=== PATIENT | female | born 1985 | race Caucasian/White ===

== ENCOUNTER 2017-04-28 05:40 | Day surgery (SDC) | payer BC, OTHER ==
[~2017-04-28] VITALS: Ht 177.8 cm; Wt 113.4 kg
[~2017-04-28 05:40] MED LIST: ACULAR1 DROP OS; IBUPROFEN600 MG PO; MACROBID 100 M100 MG PO; MELATONIN1 M1 SL; MELOXICAM15 MG PO; NORCO 5-325 TA1 EACH PO; POLYTRIM EYE DR10 ML OS; PRENATAL CAPLE1 EACH PO; TYLENOL EXTRA500 MG PO; ZOFRAN8 MG PO
--- NOTE | 2017-04-28 08:26 | NUR ---
04/28/17 0826 Brielle Sanchez 0820 PATIENT ARRIVES TO PACU UNRESPONSIVE TO PAIN OR VERBAL STIMULI. ORAL AIRWAY IN PLACE. RESP EVEN AND UNLABORED, MASK AT 10 LITERS, DECREASED TO 6 LITERS, SATS 100%.
--- NOTE | 2017-04-28 09:38 | NUR ---
LE 0900: PT RETURNED FROM PACU, PT AWAKE ASKING TO USE THE RESTROOM. VITALS STABLE, DENIES PAIN AND NAUSEA. AMBULATES TO BATHROOM TO VOID, STEADY ON FEET. DENIES DIZZINESS. PT ASKING TO GO HOME. DISCUSSED WITH ROLLWAY MAN, PT OKAY TO GO HOME IF STABLE. PT UP IN ROOM, ADVISED OKAY TO GO HOME.
--- NOTE | 2017-04-28 09:41 | NUR ---
LE 0915: IN TO CHECK ON PT, PT DRESSED WITH NO ASSISTANCE. PT STANDING TALKING ON PHONE. PT STATES SHE HAS CALLED SO TO COME PICK HER UP. DENIES PAIN AND NAUSEA. IV DC'D. DISCHARGE INSTRUCTIONS GIVEN. WILL WAIT FOR SO TO ARRIVE FOR DC.
--- NOTE | 2017-04-30 08:11 | OR ---
[facility] [address] [place], [place] [address] Signed DATE OF OPERATION: 04/28/2017 SURGEON: Aviav Carrera MD PREOPERATIVE DIAGNOSES: 1. Left mid forearm subcutaneous mass x1. 2. Right mid forearm subcutaneous mass x1. POSTOPERATIVE DIAGNOSES: 1. Left mid forearm subcutaneous mass x1. 2. Right mid forearm subcutaneous mass x1. PROCEDURE: Excision left subcutaneous forearm masses x2. ESTIMATED BLOOD LOSS: None. INDICATIONS AND DESCRIPTION OF PROCEDURE: Henry is a 32-year-old female who has a subcutaneous mass on each forearm. They are in the mid forearm. They are small about 1 cm. They feel a little bit deep. They are indurated and firm. She said it is terribly painful when she is trying to tight. It has been bothering her at work and interfering with her day. She has had her dad and grandfather had similar lesions. Both her dad and grandfather had to have them removed. Her primary care provider had asked her to see me to have them excised. In the office, we talked about trying to do it under local anesthetic and eventually decide it maybe for these because they were so deep, we would do them in the operating room under anesthesia with local anesthetic. In our preop area, I met with Henry and her . She was able to find each subcutaneous mass. There was supposed to be a 2nd one on the right forearm, but she is not able to find that out today. We are pretty certain where it is, but we decided we would leave that alone for now. We marked the 2 subcutaneous masses appropriately. After this, Henry was taken in the operating room and placed in the supine position under general endotracheal tube anesthesia. She was given preoperative antibiotics along with subcutaneous heparin. SCDs were utilized. Her arms were then prepped and draped in the usual sterile fashion. I made a radial incision over each area and then dissected down through the tissue. She had 2 hard lipomatous appearing lesions. Each one was about 1 cm. They seemed to be a little more firm than usual. We searched around the area and no other tissue noted. After this, local anesthetic was injected into both areas. The dermis was reapproximated with interrupted 3-0 subcuticular suture and then the skin edges were reapproximated with a running 6-0 Electronically Signed By: AVIVA CARRERA MD 04/30/17 0811 PATIENT NAME: HENRY PERALES OPERATIVE REPORT DATE OF : 89 PHYSICIAN: AVIVA CARRERA MD REPORT #: [id number] REPORT IS CONFIDENTIAL AND NOT TO BE RELEASED WITHOUT AUTHORIZATION [address] [address] Signed fast absorbing plain gut suture. Dry gauze and tape were then applied. Henry was then taken into the recovery room in stable condition. MD SE Plasencia/RENÉ /[id number] cc: MD Mayito Plasencia MD Electronically Signed By: AVIVA CARRERA MD 04/30/17 0811 PATIENT NAME: HENRY PERALES OPERATIVE REPORT DATE OF : 89 PHYSICIAN: AVIVA CARRERA MD REPORT #: [id number] REPORT IS CONFIDENTIAL AND NOT TO BE RELEASED WITHOUT AUTHORIZATION
== END 2017-04-28 09:30 | disposition home or self-care (01) ==
LOC: DS 05:40
PROVIDERS: Colon & Rectal Surgery
PROC: 0JBG0ZZ Excision of Right Lower Arm Subcutaneous Tissue and Fascia, Open Approach (ICD-10-PCS; 2017-04-28)
PROC: 0JBH0ZZ Excision of Left Lower Arm Subcutaneous Tissue and Fascia, Open Approach (ICD-10-PCS; principal; 2017-04-28 06:45)
DX: D17.22 Benign lipomatous neoplasm of skin and subcutaneous tissue of left arm (principal); D17.21 Benign lipomatous neoplasm of skin and subcutaneous tissue of right arm; Z90.89 Acquired absence of other organs; Z90.49 Acquired absence of other specified parts of digestive tract; Z87.891 Personal history of nicotine dependence; Z88.2 Allergy status to sulfonamides
CPT/HCPCS: 00400; J0330; J0690; J1100; J1644; J1885; J2250; J2405; J2704; J2765; J3010; J7120

== ENCOUNTER 2019-11-10 12:02 | Emergency (ER) | payer BC ==
[~2019-11-10] VITALS: Ht 177.8 cm; Wt 122.5 kg
[2019-11-10] MEDS ORDERED: PRENATAL FORMU1 EAC3 PO (12:15)
== END 2019-11-10 13:38 | disposition home or self-care (01) ==
LOC: ED 12:02
DX: O22.23 Superficial thrombophlebitis in pregnancy, third trimester (principal); I80.01 Phlebitis and thrombophlebitis of superficial vessels of right lower extremity; O99.333 Smoking (tobacco) complicating pregnancy, third trimester; F17.200 Nicotine dependence, unspecified, uncomplicated; Z3A.33 33 weeks gestation of pregnancy; Z88.2 Allergy status to sulfonamides
CPT/HCPCS: 93971; 99283-25

== ENCOUNTER 2019-12-22 16:19 | Inpatient (IN) | payer BC ==
[~2019-12-22] VITALS: Ht 177.8 cm; Wt 123.8 kg
[~2019-12-22 16:19] MED LIST changes: +PRENATAL FORMU1 EAC3 PO
--- NOTE | 2019-12-23 08:18 | PR ---
[facility] [address] [facility] [place] [address] Signed Progress Notes IP Datetime Report Generated by CPN: 12/23/2019 08:17 PROGRESS NOTES: [id number] Impression: Normal Progression of Labor Procedures: Artificial ROM Plan: Continue Present Management VITAL SIGNS: [id number] Vital Signs: Reviewed; Within Normal Limits EXAM: [id number] Dilatation: 3.0 Effacement: 80 Station: -3 Contractions: every 2-3 minutes MEMBRANES: [id number] Membranes Status: Ruptured Comments: Doing well. FETUS A: [id number] FHR Baseline: 130 Variability: Moderate 6-25bpm Accelerations: 15X15 Decelerations: Variable Presentation: Vertex FETUS B: [id number] Signing Physician: Britany Whitt MD Copies: ~ *Electronically Signed* 12/23/19 08 BRITANY WHITT MD PATIENT NAME: HENRY DANIELSON PROGRESS NOTE DATE OF : 89 PHYSICIAN: BRITANY WHITT MD RPT #: [id number] REPORT IS CONFIDENTIAL AND NOT TO BE RELEASED WITHOUT AUTHORIZATION
--- NOTE | 2019-12-24 12:21 | PR ---
[facility] [address] [place] [place] [address] Signed PP Progress Notes Datetime Report Generated by CPN: 12/24/2019 12:21 SUBJECTIVE: [id number] Pain: Within Normal Limits Nausea/Vomiting: Denies Vital Signs: [id number] Vital Signs: Reviewed; Within Normal Limits Notable Details: PP Hgb/Hct = 11.4/34.4 EXAM: Ongoing Abdomen/Uterus: Normal Lochia: Normal Extremities: Normal IMPRESSION/PLAN/PROCEDURES: [id number] Impression: Normal Progression Plan: Discharge Procedures: None Progress Notes: Doing well, without complaint, ready to go home, but GBS+ Signing Physician: Britany Whitt MD Copies: ~ *Electronically Signed* 12/24/19 1221 BRITANY WHITT MD PATIENT NAME: HENRY DANIELSON PROGRESS NOTE DATE OF : 89 PHYSICIAN: BRITANY WHITT MD RPT #: [id number] REPORT IS CONFIDENTIAL AND NOT TO BE RELEASED WITHOUT AUTHORIZATION
== END 2019-12-24 14:50 | disposition home or self-care (01) | DRG 806 ==
LOC: FBC 12-23 00:12
PROVIDERS: ADMIT General Practice; ATTEND General Practice
PROC: 10E0XZZ Delivery of Products of Conception, External Approach (ICD-10-PCS; principal; 2019-12-23)
PROC: 0UQMXZZ Repair Vulva, External Approach (ICD-10-PCS; 2019-12-23)
PROC: 10907ZC Drainage of Amniotic Fluid, Therapeutic from Products of Conception, Via Natural or Artificial Opening (ICD-10-PCS; 2019-12-23)
PROC: 3E0P7VZ Introduction of Hormone into Female Reproductive, Via Natural or Artificial Opening (ICD-10-PCS; 2019-12-23)
PROC: 00HU33Z Insertion of Infusion Device into Spinal Canal, Percutaneous Approach (ICD-10-PCS; 2019-12-23)
PROC: 3E0R3BZ Introduction of Anesthetic Agent into Spinal Canal, Percutaneous Approach (ICD-10-PCS; 2019-12-23)
DX: O62.3 Precipitate labor (principal); O87.0 Superficial thrombophlebitis in the puerperium; Z37.0 Single live birth; Z3A.39 39 weeks gestation of pregnancy; O76 Abnormality in fetal heart rate and rhythm complicating labor and delivery; O99.824 Streptococcus B carrier state complicating childbirth; O99.334 Smoking (tobacco) complicating childbirth; F17.210 Nicotine dependence, cigarettes, uncomplicated; O71.82 Other specified trauma to perineum and vulva; O99.892 Other specified diseases and conditions complicating childbirth; R12 Heartburn; Z88.2 Allergy status to sulfonamides
CPT/HCPCS: 01960; 36415; 85027; A9270; J2540; J2590; J2795; J3010; J7121

== ENCOUNTER 2021-07-16 08:57 | Day surgery (SDC) | payer BC ==
[~2021-07-16 08:57] MED LIST changes: +CLONAZEPAM0.5 MG PO; +DICYCLOMINE HCL10 MG PO
--- NOTE | 2021-07-16 11:16 | NUR ---
07/16/21 Bernabe5 Krystin Flores 1112- PT ARRIVES TO PACU ALERT AND ORIENTED. PT REPORTS NO PAIN OR NAUSEA. RESP EVEN AND UNLABORED. OXYGEN SAT HIGH 90'S TO 100% ON 3L VIA NC. 1114- OXYGEN TITRATED OFF.
--- NOTE | 2021-07-19 16:28 | PATH ---
[facility] [address] [place], [place] [address] Signed SPECIMEN(S): A TERMINAL ILUEM BIOPSY SPECIMEN(S): B CECAL BIOPSY SPECIMEN(S): C RECTAL BIOPSY SPECIMEN SOURCE: A. TERMINAL ILUEM BIOPSY B. CECAL BIOPSY C. RECTAL BIOPSY CLINICAL HISTORY: Chronic diarrhea. FINAL PATHOLOGIC DIAGNOSIS: A. Terminal ileum, biopsy: - Ileal mucosa with no histopathologic abnormality. - Negative for active inflammation or granulomas. - Negative for dysplasia or malignancy. B. Colon, cecum, biopsy: - Colonic mucosa with no histopathologic abnormality. - Negative for active, chronic, or microscopic colitis. - Negative or dysplasia or malignancy. C. Rectum, biopsy: - Colorectal mucosa with no histopathologic abnormality. - Negative for active or chronic proctitis. - Negative for dysplasia or malignancy. NAL:smh:C2NR MICROSCOPIC EXAMINATION: Histologic sections of all submitted blocks are examined by light microscopy. These findings, together with the gross examination, support the pathologic diagnosis. GROSS DESCRIPTION: Three specimens are received in three containers labeled with "EM". A. The specimen, labeled "EM, biopsy terminal ileum," is received in formalin and consists of two fragments of pink-ortega tissue (0.1 to 0.3 cm in greatest dimension). The specimen is submitted entirely in cassette A1. B. The specimen, labeled "EM, cecal biopsy," is received in formalin and consists of one fragment of pink-ortgea tissue (0.3 cm in greatest dimension). The specimen is submitted entirely in cassette B1. PATIENT NAME: HENRY DANIELSON PATHOLOGY DATE OF : 89 REPORT #: [id number] PHYSICIAN: EDWIN PAK PCP: VIDA ARITA MD REPORT IS CONFIDENTIAL AND NOT TO BE RELEASED WITHOUT AUTHORIZATION [facility] [address] [place] [address] Signed C. The specimen, labeled "EM, biopsy, rectum," is received in formalin and consists of three fragments of pink-ortega tissue (0.3 cm in greatest dimension). The specimen is submitted entirely in cassette C1. AC (under the direct supervision of a pathologist) The Gross Description was prepared using a voice recognition system. The report was reviewed for accuracy; however, sound-alike word errors, addition and/or deletions may occur. If there is any question about this report, please contact Client Services. PERFORMING LABORATORY: The technical component was performed by [facility] [address] (CLIA# [id number]). [facility] [address] [place] [address] (CLIA# [id number]). Diagnostician: Jessica Melgar MD Pathologist Electronically Signed 07/19/2021 Copies: ~ PATIENT NAME: HENRY DANIELSON PATHOLOGY DATE OF : 89 REPORT #: [id number] PHYSICIAN: EDWIN PAK PCP: VIDA ARITA MD REPORT IS CONFIDENTIAL AND NOT TO BE RELEASED WITHOUT AUTHORIZATION
--- NOTE | 2021-07-21 11:40 | OR ---
[facility] [address] [place], [place] [address] Signed DATE OF OPERATION: 07/16/2021 SURGEON: Mima Chambers MD PREOPERATIVE DIAGNOSES: 1. Chronic persistent diarrhea. 2. History of cholecystectomy in 2010. POSTOPERATIVE DIAGNOSES: Normal-appearing colon and ileum. PROCEDURE: Total colonoscopy to cecum with intubation of ileum and biopsy of ileum, cecum, and rectum. ANESTHESIA: Intravenous sedation; fentanyl 150 mcg and Versed 8 mg. INDICATIONS: This morbidly obese 36-year-old white woman is a patient of Dr. Bee, has recently undergone lipoma excision by me. She has persistent ongoing diarrhea, not associated with bleeding. She has no family history of colon cancer or inflammatory bowel disease. She did undergo cholecystectomy in 2010. She is admitted at this time to undergo colonoscopy. She understands the risks of bleeding, infection, and perforation. FINDINGS: The prep was excellent. Complete colonoscopy was undertaken to the cecum without question. Full intubation of cecum was accomplished and intubation of the ileum was accomplished as well. The ileum, colon, and rectum all appeared normal without sign of inflammatory bowel disease or other abnormalities. Biopsies were taken of the cecum, ileum, and rectum. DESCRIPTION OF PROCEDURE: The patient was brought to the endoscopy suite and placed in lateral decubitus position, given intravenous sedation to the point of slurred speech and nystagmus. Digital rectal examination was normal. An Olympus video colonoscope was passed into the rectum and manipulated throughout the colon ultimately intubating the cecum itself. The ileocecal valve and appendiceal orifice were normal. Scope was passed into the ileocecal valve and passage up to about Electronically Signed By: MIMA CHAMBERS MD 07/21/21 1140 PATIENT NAME: HENRY DANIELSON OPERATIVE REPORT DATE OF : 89 REPORT #: [id number] PHYSICIAN: MIMA CHAMBERS MD PCP: VIDA BEE MD REPORT IS CONFIDENTIAL AND NOT TO BE RELEASED WITHOUT AUTHORIZATION [facility] [address] [place], [place] [address] Signed 5-6 cm undertaken. The mucosa of the ileum appeared normal, biopsies were obtained. The scope was withdrawn and biopsies then taken of the cecum. Careful withdrawal of scope showed no sign of abnormality. A biopsy was taken of the rectum as well. Retroflexed view was normal as well. The scope was removed. The patient was taken to the recovery room in good condition. CONCLUDING DIAGNOSIS: Normal-appearing colon and ileum and rectum, this may represent post cholecystectomy (choleretic) diarrhea. PLAN: We will initiate Questran 4 g p.o. q.i.d. to taper to the lowest effective dose. She will call on Monday to set up an appointment to follow up in 4-6 weeks. Biopsies may still show some other etiology including microscopic colitis of some type. MD MASHA Merino/RENÉ /[id number] cc: Vida Bee MD Copies: VIDA BEE MD ~ Electronically Signed By: MIMA CHAMBERS MD 07/21/21 1140 PATIENT NAME: BENIGNOLUISCISCOHENRY ROBERTA OPERATIVE REPORT DATE OF : 89 REPORT #: [id number] PHYSICIAN: MIMA CHAMBERS MD PCP: VIDA BEE MD REPORT IS CONFIDENTIAL AND NOT TO BE RELEASED WITHOUT AUTHORIZATION
== END 2021-07-16 11:47 | disposition home or self-care (01) ==
LOC: DS 08:57 → OPS 08:57 → DS 09:15 → OPS 09:15
PROVIDERS: ATTEND Surgery
PROC: 0DBP8ZX Excision of Rectum, Via Natural or Artificial Opening Endoscopic, Diagnostic (ICD-10-PCS; 2021-07-16)
PROC: 0DBB8ZX Excision of Ileum, Via Natural or Artificial Opening Endoscopic, Diagnostic (ICD-10-PCS; 2021-07-16)
PROC: 0DBH8ZX Excision of Cecum, Via Natural or Artificial Opening Endoscopic, Diagnostic (ICD-10-PCS; principal; 2021-07-16 09:55)
DX: K52.9 Noninfective gastroenteritis and colitis, unspecified (principal); Z88.2 Allergy status to sulfonamides; Z90.49 Acquired absence of other specified parts of digestive tract; E66.01 Morbid (severe) obesity due to excess calories; Z68.39 Body mass index [BMI] 39.0-39.9, adult
CPT/HCPCS: 84703; 99153; G0500; J2250; J3010

== ENCOUNTER 2022-07-21 09:55 | Day surgery (SDC) | payer BC ==
[2022-07-05 16:23] VITALS: BP 139/86
[~2022-07-21] VITALS: Ht 175.3 cm; Wt 122.7 kg
[~2022-07-21 09:55] MED LIST changes: +CAMILA0.35 MG PO
[2022-07-21 10:10] VITALS: BP 126/75
--- NOTE | 2022-07-21 12:10 | NUR ---
07/21/22 1210 Sheets,Carolyn 1203 PT ARRIVED TO PACU ON 10L VIA MASK AND ORAL AIRWAY IN PLACE. RESP EVEN AND UNLABORED. 1209 O2 DECREASED TO 6L VIA MASK.
[2022-07-21 13:28] VITALS: BP 124/65
--- NOTE | 2022-07-21 13:30 | NUR ---
PT ARRIVES TO DAY SURGERY ROOM #3 ALERT AND ORIENTED. PT REPORTS SHE FEELS LIKE SHE HAS TO URINATE. PT UP TO THE BEDSIDE COMMODE. PT REPORTS NO DIZZINESS AND NAUSEA. PT UNABLE TO URINATE AND STATES SHE THINKS IT MAY BE THE PACKING THAT IS MAKING HER FEEL LIKE SHE HAS TO URINATE. PT BACK TO BED WITH ASSISTANCE. SCD'S CONNECTED. PT PROVIDED JELL-O, CRACKERS, AND WATER PER HER REQUEST. TOLERATING WELL. PT HAS NO FURTHER REQUESTS AT THIS TIME. CONTINUOUS PULSE OX IN PLACE. BED IN THE LOWEST POSITION, BED RAIL UP X1, CALL LIGHT PROVIDED. EDUCATED TO CALL FOR ASSISTANCE BEFORE GETTING OUT OF BED. PT AGREEABLE TO THIS.
--- NOTE | 2022-07-21 13:34 | NUR ---
DR. WHITT CALLED TO CLARIFY ABOUT GIVING MOTRIN PO. DR. WHITT OKAY WITH PT RECEIVING MOTRIN. DR. WHITT STATES HE WILL BE DOWN SOON TO REMOVE THE VAGINAL PACKING.
--- NOTE | 2022-07-21 13:56 | NUR ---
DR. WHITT IN THE ROOM TO TALK WITH THE PT ABOUT SURGERY AND TO REMOVE THE VAGINAL PACKING. THIS RN AT THE BEDSIDE WITH DR. WHITT DURING VAGINAL PACKING REMOVAL. PT TOLERATED WELL. HAPPY TO HAVE THE PACKING REMOVED. PT PUTTING HER UNDERWEAR AND PAD IN PLACE PER HER COMFORT.
--- NOTE | 2022-07-21 14:00 | NUR ---
PT AMBULATED TO THE RESTROOM. TOLERATED WELL. PT REPORTS NO DIZZINESS AND NAUSEA.
[2022-07-21 14:17] VITALS: BP 118/70
--- NOTE | 2022-07-21 14:18 | NUR ---
PT ATTEMPTED TO URINATE. WAS ABLE TO URINATE A "SMALL AMOUNT" ACCORDING TO THE PT THE URINE MISSED THE HAT IN THE TOILET. PT REPORTS IT BURNED TO URINATE. PT BLADDER SCANNED FOR 275 ML. PT ENCOURAGED TO DRINK MORE FLUIDS. PT PROVIDED APPLE JUICE PER HER REQUEST. CALL LIGHT PROVIDED TO PT.
[2022-07-21] MEDS ORDERED: MOTRIN IB200 M1 PO (14:33)
[2022-07-21] MEDS ORDERED: HYDROCODON-ACE1 EA10 PO (14:33)
--- NOTE | 2022-07-21 14:38 | NUR ---
PT AMBULATED TO THE RESTROOM AND WAS ABLE TO URINATE LIGHT RED URINE. PT REPORTS LESS BURNING THIS TIME. PT AMBULATED BACK TO HER ROOM AND IS GETTING HERSELF DRESSED TO GO HOME.
[2022-07-21 14:51] VITALS: BP 136/75
--- NOTE | 2022-07-21 15:03 | NUR ---
1449- PT PROVIDED DC INSTRUCTIONS. ALL QUESTIONS ANSWERED. PT REPORTS NO NAUSEA OR DIZZINESS. RATES HER PAIN A 4/10 AND DENIES NEEDING ANYTHING MORE FOR PAIN AT THIS TIME. 1456- PT AMBULATED BACK TO THE RESTROOM AND WAS ABLE TO URINATE. UNMEASURED THIS TIME.
--- NOTE | 2022-07-22 15:11 | NUR ---
ATTEMPTED TO CALL THE PT FOR A FOLLOW UP. PT DID NOT ANSWER. MESSAGE LEFT.
--- NOTE | 2022-07-25 11:05 | PATH ---
[facility] [address] [place], [place] [address] Signed SPECIMEN(S): A VAGINAL WALL CYST SPECIMEN SOURCE: A. VAGINAL WALL CYST CLINICAL HISTORY: Excision of vaginal wall cyst. Vaginal cyst. FINAL PATHOLOGIC DIAGNOSIS: Vaginal wall cyst: - Benign cyst with associated benign mucinous glandular tissue. - Negative for atypical features. JVR:aakash:C2NR MICROSCOPIC EXAMINATION: Histologic sections of all submitted blocks are examined by light microscopy. These findings, together with the gross examination, support the pathologic diagnosis. GROSS DESCRIPTION: The specimen, labeled and designated "[place], vagina wall cyst," is received in formalin and consists of a violaceous, soft, cyst-like tissue material that measure 3.8 cm in diameter. The surface of the specimen is fluctuating. Specimen is inked. Sectioning through the specimen reveals a cyst that measures 3.5 cm in diameter. The cyst is filled with a yellow-orteag, translucent, gelatinous fluid. The inner surface of the cyst is smooth. Business Unit Manager sections are submitted in (A1-A2). JS (under the direct supervision of a pathologist) The Gross Description was prepared using a voice recognition system. The report was reviewed for accuracy; however, sound-alike word errors, addition and/or deletions may occur. If there is any question about this report, please contact Client Services. PERFORMING LABORATORY: The technical component was performed by [facility], [address] [place] [id number] (CLIA# [id number]). Professional interpretation was performed by [facility], [address] [place] [id number] (CLIA#: [id number]). Diagnostician: Fernando Soto MD PATIENT NAME: HENRY DANIELSON PATHOLOGY DATE OF : 89 REPORT #: [id number] PHYSICIAN: [facility] PCP: VIDA ARITA MD REPORT IS CONFIDENTIAL AND NOT TO BE RELEASED WITHOUT AUTHORIZATION [address] [place], [place] [address] Signed Pathologist Electronically Signed 07/25/2022 Copies: ~ PATIENT NAME: HENRY DANIELSON PATHOLOGY DATE OF : 89 REPORT #: [id number] PHYSICIAN: [facility] PCP: VIDA ARITA MD REPORT IS CONFIDENTIAL AND NOT TO BE RELEASED WITHOUT AUTHORIZATION
--- NOTE | 2022-07-27 10:37 | OR ---
[address] [address] Signed DATE OF OPERATION: 07/21/2022 SURGEON: Jose Amaya MD PREOPERATIVE DIAGNOSIS: Left vaginal wall cyst. POSTOPERATIVE DIAGNOSIS: Left vaginal wall cyst. PROCEDURE: Excision of vaginal wall cyst. KARATE BLACK BELT: Gerardo Masterson D.O. ANESTHESIA: General. ESTIMATED BLOOD LOSS: 350 mL. SPECIMENS: Vaginal cyst. DRAINS: Tierney to bladder packing, Kerlix, gauze in vagina. FINDINGS: Normal external genitalia. Normal vaginal mucosa with 4 cm thin walled, clear fluid-filled cyst in the left lateral proximal vagina just behind the vaginal mucosa. There was a broad band deeper with the blood supply to this simple cyst behind the cyst, otherwise that was seen to be simple and thin-walled. COMPLICATIONS: None. DESCRIPTION OF PROCEDURE: The patient was brought to the operating room, placed in supine position. After adequate general anesthesia was obtained, she was placed in a dorsal lithotomy position, Electronically Signed By: JOSE AMAYA MD 07/27/22 [facility] PATIENT NAME: HENRY DANIESLON OPERATIVE REPORT DATE OF : 89 REPORT #: [id number] PHYSICIAN: JOSE AMAYA MD PCP: VIDA BEE MD REPORT IS CONFIDENTIAL AND NOT TO BE RELEASED WITHOUT AUTHORIZATION [address] [address] Signed prepped and draped in usual sterile fashion. The cyst was palpated and two Allis clamps were used to grasp the vaginal mucosa just inside the introitus in the vertical fashion, so a vertical incision could be made over the cyst through the vaginal mucosa, this was done with a needle-tip Bovie. Metzenbaum scissors were used to undermine the vaginal mucosa and free up the cyst on either side of the mucosa. Finger dissection and Metzenbaums were used to separate the cyst from the vaginal mucosa and surrounding tissue. This was taken down all the way except for broad firm band attached to the cyst just behind the cyst thicker at each end and thin in the middle. Finger was used to open the space between the two thicker ends and suture passed through the opening and the upper pedicle tied with two stitches of 0-Vicryl suture, this pedicle was then cut. The cyst could then be brought down, elevated further and a clamp placed across the lower pedicle and the pedicle cut removing the cyst, which was still whole. This pedicle was tied with 2-0 Vicryl suture. The surrounding tissue, in the space where the cyst had been, had multiple small vessels, which took time to control, but the area was irrigated, inspected, and individually any bleeding areas were either cauterized or closed with cnzwow-gv-ojbby stitch of 2-0 Vicryl and 0-chromic. This was continued until the bleeding was well controlled. The space was then closed using udsgyr-df-hzyjw stitch of 0-chromic suture, and then pressure was held for 3 minutes and then inspected any superficial bleeding spots cauterized with the Bovie. No obvious bleeding spots were noted, there was slight oozing and these were taken care of and then Flomax was inserted into the area as the vaginal mucosa was closed using running locking stitch of 2-0 Vicryl suture. Vaginal pack was placed in the vagina and a Tierney catheter placed in the bladder, both to be removed before going home. The patient tolerated the procedure well and went to the recovery room in good condition. The sponge, needle, and instrument counts were correct at the end of the procedure. The cyst was sent to Pathology for identification. Jose Amaya MD MJB/MODL /[id number] cc: Vida Bee MD Electronically Signed By: JOSE AMAYA MD 07/27/22 1037 PATIENT NAME: HENRY DANIELSON OPERATIVE REPORT DATE OF : 89 REPORT #: [id number] PHYSICIAN: JOSE AMAYA MD PCP: VIDA BEE MD REPORT IS CONFIDENTIAL AND NOT TO BE RELEASED WITHOUT AUTHORIZATION [facility] [address] [place] [address] [place] [address] Signed Copies: VIDA BEE MD ~ Electronically Signed By: JOSE AMAYA MD 07/27/22 1037 PATIENT NAME: HENRY DANIELSON OPERATIVE REPORT DATE OF : 89 REPORT #: [id number] PHYSICIAN: JOSE AMAYA MD PCP: VIDA BEE MD REPORT IS CONFIDENTIAL AND NOT TO BE RELEASED WITHOUT AUTHORIZATION
== END 2022-07-21 14:59 | disposition home or self-care (01) ==
LOC: OPS 09:55 → DS 09:55 → OPS 14:59
PROVIDERS: ATTEND General Practice
DX: N89.8 Other specified noninflammatory disorders of vagina (principal); F17.210 Nicotine dependence, cigarettes, uncomplicated; Z88.1 Allergy status to other antibiotic agents; Z79.899 Other long term (current) drug therapy
CPT/HCPCS: 00940; 84703; A9270; J0131; J1100; J1885; J2250; J2405; J2704; J2765; J3010; J7121

== ENCOUNTER 2023-08-13 16:30 | Emergency (ER) | payer BC ==
[~2023-08-13] VITALS: Ht 175.3 cm; Wt 107.5 kg
[~2023-08-13 16:30] MED LIST changes: +HYDROCODON-ACE1 EA10 PO; +MOTRIN IB200 M1 PO; +OZEMPIC0.25 MG/02 SQ
[2023-08-13] MEDS ORDERED: WEGOVY1 MG/0.5 M (17:01)
[2023-08-13 17:15] LABS: BASOPHILS 0.6 % (0-2); EOSINOPHILS 2.5 % (0-6); HEMATOCRIT 39.8 % (35.0-50.0); HEMOGLOBIN 12.9 g/dL (12.0-18.0); LYMPHOCYTES 36.7 % (24-44); MCHC 32.5 g/dl (30-36); MONOCYTES 5.3 % (0-12); NEUTROPHILS 54.9 % (39-80); PLATELET COUNT 283 K/uL (140-440); RBC 4.63 M/ul (4.3-5.7)
[2023-08-13] MEDS ORDERED: ondansetron HCL 4 MG/2 ML VIAL IV ONE (17:15)
[2023-08-13] MEDS ORDERED: SODIUM CHLORIDE 0.9% 1,000 ML IV ONE (17:15)
[2023-08-13 17:35] LABS: ALBUMIN 3.8 g/dL (3.4-5.0); ALBUMIN/GLOBULIN RATIO 1.03 (1.1-2.4); ANION GAP 15.8 (7-21); BILIRUBIN, TOTAL 1.3 ng/dL (0.2-1.0); BUN/CREATININE RATIO 8.23 (6.0-28.6); CALCIUM 8.8 mg/dL (8.5-10.1); CREATININE, SERUM 0.85 mg/dL (0.55-1.02); MAGNESIUM 2.1 mg/dL (1.8-2.4); POTASSIUM 3.8 mmol/L (3.5-5.1); PROTEIN, TOTAL 7.5 g/dL (6.4-8.2)
[2023-08-13 18:32] LABS: BILIRUBIN, URINE NEGATIVE (negative); BLOOD/HGB, URINE NEGATIVE (Negative); KETONE, URINE SMALL (Negative); LEUK ESTERASE, URINE TRACE (negative); NITRITE, URINE NEGATIVE (negative)
[2023-08-13 18:48] LABS: BACTERIA, URINE 1+ /hpf (negative); CASTS, URINE NONE SEEN \\lpf; COLLECTION TYPE, URINE CLEAN CATCH; CRYSTALS, URINE NONE SEEN (0-1+); EPITHELIAL CELLS, URINE SQUAMOUS 2+ /lpf (0-1+); REFLEX CULTURE, URINE No (No)
[2023-08-13] MEDS ORDERED: PROMETHAZINE HC25 M1 PO (18:51)
[2023-08-13] MEDS ORDERED: ONDANSETRON ODT8 MG PO (18:51)
[2023-08-13 19:16] VITALS: BP 109/71
== END 2023-08-13 19:25 | disposition home or self-care (01) ==
LOC: ED 16:30
PROVIDERS: Emergency Medicine
DX: R10.12 Left upper quadrant pain (principal); F17.200 Nicotine dependence, unspecified, uncomplicated; Z88.2 Allergy status to sulfonamides; Z79.899 Other long term (current) drug therapy
CPT/HCPCS: 36415; 80053; 81001; 83690; 83735; 84703; 85025; 96361; 96374; 99284-25; J2405; J7030